=== PATIENT | male | born 1965 | race Caucasian/White ===

== ENCOUNTER 2018-06-24 20:12 | Observation (INO) | payer OTHER ==
[~2018-06-24] VITALS: Ht 175.3 cm; Wt 99.3 kg
[~2018-06-24 20:12] MED LIST: ACETAMINOPHEN-1 EAC1 PO; ASPIRIN325 PO; AUGMENTIN XR1000 MG; BACTRIM DS TAB1 EAC1 PO; BACTRIM DS TAB1 EACH PO; BENADRYL25 MG PO; CALICUM 500+D1 EACH PO; CARAFATE 1 GM TA1 GM PO; CIPRO500 MG PO; CIPROFLOXACIN500 M1 PO; COZAAR 25 MG TA25 MG PO; FIBER1 GM PO; FISH OIL 1,001000 M2 PO; FLAGYL500 MG PO; HYDROCODONE-AP1 EAC6 PO; HYDROCODONE-APA1 TA1 PO; IBUPROFEN 800800 M1 PO; IBUPROFEN 800800 MG PO; KEFLEX500 MG PO; NOHOMEMEDICATIONS; NORCO 5-325 TA1 EAC1 PO; NORCO 5-325 TA1 EACH PO; ONDANSETRON HCL4 M2 PO; PERCOCET PO; PREVACID30 MG PO; PROBIOTIC1 EAC1 PO; ULTRAM 50MG TAB50 MG PO; ZOFRAN ODT4 MG PO
[2018-06-24 20:16] VITALS: BP 107/64
[2018-06-24] MEDS ORDERED: OLMESARTAN MEDO40 MG PO (20:19)
[2018-06-24] MEDS ORDERED: LIPITOR10 MG PO (20:19)
[2018-06-24 20:49] LABS: ABSOLUTE BASOPHILS 0.1 thou/uL (0.0-0.2); ABSOLUTE EOSINOPHILS 0.1 thou/uL (0.0-0.7); ABSOLUTE LYMPHOCYTES 2.2 thou/uL (0.8-5.3); ABSOLUTE MONOCYTES 0.4 thou/uL (0.0-1.2); ABSOLUTE NEUTROPHILS 2.7 thou/uL (1.6-8.1); EOSINOPHILS 2.4 %; HEMATOCRIT 40.5 % (42.0-52.0); HEMOGLOBIN 13.9 gm/dL (14.0-18.0); LYMPHOCYTES 39.6 %; MCH 32.6 pg (26.0-34.0); MCHC 34.2 g/dL (28.0-37.0); MCV 95.2 fL (80.0-100.0); MONOCYTES 7.8 %; MPV 11.6 fl. (7.2-11.1); NUCLEATED RBCS 0 /100WBC; PLATELET COUNT* 80 thou/uL (150-400); POLYS 49.2 %; RBC 4.25 mil/uL (4.50-6.00); RDW-CV 13.3 % (10.5-14.5); WBC 5.5 thou/uL (4.0-11.0)
[2018-06-24 20:53] LABS: ANION GAP 8 mmol/L (7-16); BUN 38 mg/dL (7-18); CALCIUM 9.3 mg/dL (8.5-10.1); CHLORIDE 104 mmol/L (98-107); CO2 27 mmol/L (21-32); CREATININE 1.7 mg/dL (0.6-1.3); GLUCOSE 110 mg/dL (70-99); INR 1.1; POTASSIUM 3.8 mmol/L (3.5-5.1); PROTIME 10.9 Seconds (9.20-11.50); SODIUM 139 mmol/L (136-145)
[2018-06-24 21:03] LABS: ALBUMIN 3.8 g/dL (3.4-5.0); ALKALINE PHOSPHATASE 71 U/L (46-116); LIPASE 174 U/L (73-393); NT-PRO BRAIN NAT PEPTIDE 78 pg/mL (<300); SGOT 21 U/L (15-37); SGPT 41 U/L (30-65); TOTAL BILIRUBIN 0.4 mg/dL (<0.1-1.0); TOTAL PROTEIN 7.9 g/dL (6.4-8.2); TROPONIN-I LEVEL <0.06 ng/mL (<0.06)
[2018-06-24 22:49] VITALS: BP 132/72
[2018-06-24] MEDS ORDERED: MILK OF MA2400 MG/10 PO (23:03)
[2018-06-24] MEDS ORDERED: ZINC30 M1 PO (23:03)
[2018-06-24 23:30] VITALS: BP 111/77
[2018-06-25 04:00] VITALS: BP 108/62
--- NOTE | 2018-06-25 05:16 | NUR ---
PT ADMITTED TO ROOM 203 FROM ER. PT MOVED SELF TO BED WITH NO DIFFICULTY. TLEMETRY PACK APPLIED WITH ALARMS SET. HR 43. PT ORIENTED TO ROOM, TV CONTORLS NURSE CALL AND VERBALIZED GOOD UNDERSTANDING. VSS AND NO ACUTE DISTRESS NOTED. NO ACUTE CHANGES DURING SHIFT. WILL CONTINUE TO MONITOR.
[2018-06-25 09:00] VITALS: BP 95/59
--- NOTE | 2018-06-25 09:21 | NUR ---
ASSUMED PT. CARE AND RECEIVED REPORT AT 0730. PT A/OX4, BP SOFT AT 95/59, HEART RATE 48. PT. DENIES CURRENT PAIN/DIZZINESS/SOB. FULL ASSESSMENT COMPLETED, REFER TO CHARTING. RECEIVED CALL FROM STRESS TEST RN, ROSA ISELA FOR LIGHT BREAKFAST. PT. AWARE OF PLAN OF CARE. INSTRUCTED TO CALL FOR ASSISTANCE WITH AMBULATION, STATED UNDERSTANDING. WILL CONTINUE WITH PLAN OF CARE.
--- NOTE | 2018-06-25 11:23 | NUR ---
Pt is A&O. Resides at home. Independent with ADLs, works outside of the home. No DME. No hx of HH or SNF. Supportive family. Goal is home at nc. Cardiology following.
--- NOTE | 2018-06-25 11:32 | 2DMMODE ---
[place] [address] 2 D/M-MODE ECHOCARDIOGRAM Name: ADIN SUNG Room: [address] IN [facility]#: [id number] Admission: 06/24/18 Attend Phys: Yovanny Pino, Discharge: Date of : 63 Date of Service: 06/25/18 1132 Report #: [id number] THIS REPORT FOR: //name// APPROVED REPORT Study performed: 06/25/2018 09:46:33 EXAM: Comprehensive 2D, Doppler, and color-flow Echocardiogram Patient Location: In-Patient Room #: [facility] Status: routine BSA: 2.15 HR: 49 bpm BP: 108/62 mmHg Rhythm: NSR Other Information Study Quality: Good Indications Chest Pain Dizzy, weak 2D Dimensions LVEF(%): 78.53 (>50%) IVSd: 9.43 (7-11mm) LVOT Diam: 21.88 (18-24mm) LVDd: 50.81 mm PWd: 7.53 (7-11mm) Ascending Ao: 36.67 (22-36mm) LVDs: 26.73 (25-40mm) Aortic Root: 29.87 mm Schultz's LVEF: 78.53 % Volumes Left Atrial Volume (Systole) LA ESV Index: 26.90 mL/m2 Aortic Valve AoV Peak Holden.: 2.17 m/s AO Peak Gr.: 18.79 mmHg LVOT Max P.46 mmHg AO Mean Gr.: 10.87 mmHg LVOT Mean P.83 mmHg LVOT Max V: 1.27 m/s AO V2 VTI: 50.71 cm LVOT Mean V: 0.75 m/s SURAJ (VTI): 2.46 cm2 LVOT V1 VTI: 33.19 cm AI Major: 1.39 m/s2 AI PHT: 708.48 [place] [address] 2 D/M-MODE ECHOCARDIOGRAM Name: ADIN SUNG Room: [address] [place] .R.#: [id number] Admission: 06/24/18 Attend Phys: Yovanny Pino, Discharge: Date of : 63 Date of Service: 06/25/18 1132 Report #: [id number] Mitral Valve E/A Ratio: 1.89 MV Decel. Time: 271.42 ms MV E Max Holden.: 0.89 m/s MV PHT: 78.71 ms MVA (PHT): 2.79 cm2 TDI E/Lateral E': 6.36 E/Medial E': 8.09 Medial E' Holden.: 0.11 m/s Lateral E' Holden.: 0.14 m/s Pulmonary Valve PV Peak Holden.: 0.97 m/s PV Peak Gr.: 3.80 mmHg Tricuspid Valve RAP Estimate: 5.00 mmHg TR Peak Gr.: 17.07 mmHg RVSP: 22.07 mmHg PA Pressure: 22.07 mmHg Left Ventricle The left ventricle is normal size. There is normal LV segmental wall motion. There is normal left ventricular wall thickness. Left ventricular systolic function is normal. LVEF is 65-70%. The left ventricular diastolic function is normal. Right Ventricle The right ventricle is normal size. The right ventricular systolic function is normal. Atria The left atrium size is normal. The right atrium size is normal. Aortic Valve The aortic valve is normal in structure. Mild aortic regurgitation. There is no aortic valvular stenosis. Mitral Valve The mitral valve is normal in structure. There is no mitral valve regurgitation noted. No evidence of mitral valve stenosis. Tricuspid Valve The tricuspid valve is normal in structure. Trace tricuspid regurgitation. [place] [address] 2 D/M-MODE ECHOCARDIOGRAM Name: ADIN SUNG Room: [address] [place] .R.#: [id number] Admission: 06/24/18 Attend Phys: Yovanny Pino, Discharge: Date of : 63 Date of Service: 06/25/18 1132 Report #: [id number] Pulmonic Valve The pulmonary valve is normal in structure. There is no pulmonic valvular regurgitation. Great Vessels The aortic root is normal in size. IVC is normal in size and collapses with >50% inspiration Pericardium There is no pericardial effusion. <Conclusion> The left ventricle is normal size. There is normal left ventricular wall thickness. Left ventricular systolic function is normal. LVEF is 65-70%. The left ventricular diastolic function is normal. Mild aortic regurgitation. Trace tricuspid regurgitation. No pulmonary hypertension. IVC is normal in size and collapses with >50% inspiration <ELECTRONICALLY SIGNED> By: Phong Hanson MD, FACC 06/25/18 113 31 113 Phong Hanson MD, FACC /INF
--- NOTE | 2018-06-25 11:42 | EKG ---
[place] [address] ELECTROCARDIOGRAM REPORT Name: ADIN SUNG Room: [address] ADM IN M.R.#: [id number] Admission: 06/24/18 Attend Phys: Yovanny Pino MD Discharge: Date of : 63 Report #: [id number] THIS REPORT FOR: //name// [facility] ED Test Date: 2018-06-24 Test Time: 20:16:31 Pat Name: ADIN SUNG Department: Room: [facility] Gender: M Care Partner: : 1965 Requested By: Olivier Tinoco Order Number: [id number] MD: Phong Hanson Measurements Intervals [place] Rate: 52 P: 30 AL: 178 QRS: -9 QRSD: 90 T: 26 QT: 418 QTc: 389 Interpretive Statements Sinus rhythm Abnormal R-wave progression, late transition Inferior infarct, old Compared to ECG 09/07/2017 09:54:37 Myocardial infarct finding now present Electronically Signed On 06-25-2018 11:41:55 CDT by Phong Hanson [email or web address] <ELECTRONICALLY SIGNED> By: Phong Hanson MD, [facility] 06/25/18 1141 15 15 Phong Hanson MD, [facility] /EPI
[2018-06-25 12:04] VITALS: BP 94/58
--- NOTE | 2018-06-25 12:05 | NUR ---
pt spo2 on room air was 98%. Heart rate was 52.
--- NOTE | 2018-06-25 15:43 | CARDNUC ---
[place] [address] CARDIAC NUCLEAR IMAGING REPORT Name: ADIN SUNG Room: [address] IN [facility]#: [id number] Admission: 06/24/18 Attend Phys: Yovanny Pino, Discharge: Date of : 63 Date of Service: 06/25/18 1543 Report #: [id number] THIS REPORT FOR: //name// APPROVED REPORT Imaging Protocol: Rest Tc-99m/Stress Tc-99m 1 day Study performed: 06/25/2018 08:23:00 Indication: Chest pain Patient Location: In-Patient Room #: 203 Stress Tech: Selene Cuba Stress Nurse: Joellen Guerrier RN NM Tech:JOEL Jaffe Ht: 5 ft 9 in Wt: 219 lbs BSA: 2.15 m2 BMI: 32.33 Medical History Medical History: hep c, past hx drug abuse andetho abuse, hyperlipidemia, hypertension Medications: atorvastatin, olmesartan Allergies: darvocet, zithromax Cardiac Risk Factors: age, hyperlipidemia, hyptension Previous Cardiac Procedures: none Exercise History: Indeterminate Resting Data Rest SPECT myocardial perfusion imaging was performed in supine position 30 minutes following the intravenous injection of 10.3 mCi of Tc-99m Sestamibi. Time of rest injection: 1150 Date: 06/25/2018 Time of rest imagin The images were gated to evaluate regional wall motion and calculate left ventricular ejection fraction. Administration Route: IV Administration Site: Right AC Pharmacologic Stress Pharmacologic stress test was performed by injecting Regadenoson 0.4 mg IV push over 10-15 seconds immediately followed by the intravenous injection of 34.2 mCi of Tc-99m Sestamibi. Time of stress injection: 1320 Time of stress imagin Administration Route: [place] [address] CARDIAC NUCLEAR IMAGING REPORT Name: ADIN SUNG Room: [address] IN [facility]#: [id number] Admission: 06/24/18 Attend Phys: Yovanny Pino, Discharge: Date of : 63 Date of Service: 06/25/18 1543 Report #: [id number] Administration Site: Right AC Gated Stress SPECT was performed 40 minutes after stress injection. The images were gated to evaluate regional wall motion and calculate left ventricular ejection fraction. Prone imaging was performed. Stress Test Details Stress Test: Pharmacologic stress testing performed using 0.4 mg of regadenoson per 5 mL given IV over 10 seconds. Reason for pharmacologic stress test: physical limitation. HR Max Heart Rate (APMHR): 167 bpm Resting HR: 50 bpm Target HR (85% APMHR): 141 bpm Max HR Achieved: 98 bpm % of APMHR: 58 Recovery HR: 89 bpm BP Resting BP: 111/91 mmHg Recovery BP: 129/98 mmHg ECG Resting ECG: Sinus Rhythm, normal EKG Stress ECG: Sinus Rhythm, normal EKG ST Change: None Arrhythmia: None Recovery ECG: Sinus Rhythm, normal EKG Recovery ST Change: None Recovery Arrhythmia: None Clinical Reason for Termination: Completed protocol Exercise duration: 0 min sec Exercise capacity: 1 METs The patient tolerated Lexiscan infusion without significant symptoms. Stress ECG Conclusion The baseline EKG show sinus rhythm without significant ST or T wave abnormality. His obtained during and post Lexiscan infusion show sinus rhythm with no significant ST or T wave changes when compared to baseline. There were no stress-induced arrhythmias. Study Quality Study: [place] [address] CARDIAC NUCLEAR IMAGING REPORT Name: ADIN SUNG Room: [address]#: [id number] Admission: 06/24/18 Attend Phys: Yovanny Pino, Discharge: Date of : 63 Date of Service: 06/25/18 1543 Report #: [id number] Artifact: No artifact Study Data At rest, the left ventricular ejection fraction was 71%.. Post stress, the left ventricular ejection was 70%.. TID = 1.11. Perfusion Normal left ventricular perfusion. Wall Motion Normal left ventricular wall motion. Nuclear Conclusion ECG Findings: negative for ischemia Clinical Findings: negative for ischemia Nuclear Findings: negative for ischemia Exercise Capacity: not assessed Left Ventricular Function: normal Risk Study: low Myocardial perfusion images show no defect to suggest infarct or ischemia. Left ventricular systolic function appears normal on gated studies. This is a low risk study. <Conclusion> The baseline EKG show sinus rhythm without significant ST or T wave abnormality. His obtained during and post Lexiscan infusion show sinus rhythm with no significant ST or T wave changes when compared to baseline. There were no stress-induced arrhythmias. <ELECTRONICALLY SIGNED> By: Phong Hanson MD, FACC 06/25/18 1543 1543 1543 Phong Hanson MD, FACC /INF
[2018-06-25 15:55] VITALS: BP 104/65; BP 94/58
[2018-06-25 16:04] VITALS: BP 104/65
--- NOTE | 2018-06-25 16:30 | NUR ---
RECEIVED CALL FROM TG LIANG THAT STRESS AND ECHO WNL AND OKAY TO DC FROM CV STANDPOINT. DC ORDERS ALREADY RECEIVED FROM DR. DODSON. PT. MADE AWARE OF PLAN TO DC. IV AND MONITOR REMOVED. PT. GIVEN DC INSTRUCTIONS, VERBALIZED UNDERSTANDING. PT. LEFT TO RETURN HOME IN PERSONAL VEHICLE, ALL BELONGINGS ACCOUNTED FOR.
== END 2018-06-25 16:30 | disposition home or self-care (01) ==
LOC: M.ERS 20:12 → M.2W 21:22 → M.TBA-ER 21:22 → M.2W 23:00
PROVIDERS: Emergency Medicine; ADMIT Internal Medicine
DX: R42 Dizziness and giddiness (principal); E86.0 Dehydration; R00.1 Bradycardia, unspecified; D69.6 Thrombocytopenia, unspecified; N17.9 Acute kidney failure, unspecified; R07.89 Other chest pain; I10 Essential (primary) hypertension; E78.5 Hyperlipidemia, unspecified; F17.210 Nicotine dependence, cigarettes, uncomplicated; F15.11 Other stimulant abuse, in remission

== ENCOUNTER 2018-10-25 19:25 | Emergency (ER) | payer OTHER ==
[~2018-10-25 19:25] MED LIST changes: +LIPITOR10 MG PO; +MILK OF MA2400 MG/10 PO; +OLMESARTAN MEDO40 MG PO; +ZINC30 M1 PO
== END 2018-10-25 20:06 ==
LOC: M.ERS 19:25
DX: Z02.89 Encounter for other administrative examinations (principal)

== ENCOUNTER 2020-05-23 10:29 | Emergency (ER) | payer OTHER ==
[~2020-05-23] VITALS: Ht 175.3 cm; Wt 117.9 kg
[2020-05-23] MEDS ORDERED: VIMPAT200 MG PO (10:41)
[2020-05-23] MEDS ORDERED: CARVEDILOL25 MG PO (10:41)
[2020-05-23] MEDS ORDERED: MAGNESIUM250 M1 PO (10:41)
[2020-05-23 11:25] LABS: CALCIUM 8.5 mg/dL (8.5-10.1); CREATININE 1.1 mg/dL (0.6-1.3); POTASSIUM 4.2 mmol/L (3.5-5.1)
[2020-05-23 11:36] LABS: ALBUMIN 3.9 g/dL (3.4-5.0); TOTAL BILIRUBIN 0.7 mg/dL (<0.1-1.0)
[2020-05-23 11:39] LABS: ABSOLUTE BASOPHILS 0.1 thou/uL (0.0-0.2); ABSOLUTE EOSINOPHILS 0.2 thou/uL (0.0-0.7); ABSOLUTE LYMPHOCYTES 1.7 thou/uL (0.8-5.3); ABSOLUTE MONOCYTES 0.4 thou/uL (0.0-1.2); ABSOLUTE NEUTROPHILS 3.4 thou/uL (1.6-8.1); BASOPHILS 0.9 %; EOSINOPHILS 2.6 %; HEMATOCRIT 46.9 % (42.0-52.0); HEMOGLOBIN 16.5 gm/dL (14.0-18.0); MCH 31.9 pg (26.0-34.0); MCHC 35.2 g/dL (28.0-37.0); MCV 90.8 fL (80.0-100.0); MONOCYTES 7.4 %; MPV 10.2 fl. (7.2-11.1); NUCLEATED RBCS 0 /100WBC; PLATELET COUNT* 67 thou/uL (150-400); POLYS 59.1 %; RBC 5.16 mil/uL (4.50-6.00); RDW-CV 13.6 % (10.5-14.5); WBC 5.8 thou/uL (4.0-11.0)
[2020-05-23 12:17] VITALS: BP 148/92
--- NOTE | 2020-05-24 11:34 | EKG ---
[place] [address] ELECTROCARDIOGRAM REPORT Name: ADIN SUNG Room: [facility]#: [id number] Admission: 05/23/20 Attend Phys: Discharge: 05/23/20 Date of : 63 Date of Service: 05/23/20 1048 Report #: [id number] THIS REPORT FOR: //name// [facility] ED Test Date: 2020-05-23 Test Time: 10:48:49 Pat Name: ADIN SUNG Department: Room: Gender: Olive Pitter: [facility] : 1965 Requested By: Addy Alonzo Order Number: [id number] MD: Ezequiel Lee Measurements Intervals [place] Rate: 62 P: 24 AR: 196 QRS: -16 QRSD: 94 T: 23 QT: 401 QTc: 408 Interpretive Statements Sinus rhythm Borderline left axis deviation Abnormal R-wave progression, late transition Compared to ECG 06/24/2018 20:16:31 rate has increased Electronically Signed On 05-24-2020 11:33:29 CDT by Ezequiel Lee [email or web address] <ELECTRONICALLY SIGNED> By: Ezequiel Lee MD, [facility] 05/24/20 1133 1048 1048 Ezequiel Lee MD, [facility] /EPI
== END 2020-05-23 12:19 | disposition home or self-care (01) ==
LOC: M.ERS 10:29
PROVIDERS: Emergency Medicine Emergency Medical Services
DX: R56.9 Unspecified convulsions (principal); R42 Dizziness and giddiness; F17.210 Nicotine dependence, cigarettes, uncomplicated; I10 Essential (primary) hypertension; Z88.1 Allergy status to other antibiotic agents; Z88.8 Allergy status to other drugs, medicaments and biological substances; Z86.14 Personal history of Methicillin resistant Staphylococcus aureus infection; Z79.899 Other long term (current) drug therapy

== ENCOUNTER 2020-06-25 18:59 | Emergency (ER) | payer OTHER ==
[~2020-06-25] VITALS: Ht 175.3 cm; Wt 102.1 kg
[~2020-06-25 18:59] MED LIST changes: +CARVEDILOL25 MG PO; +MAGNESIUM250 M1 PO; +VIMPAT200 MG PO
[2020-06-25 19:26] LABS: ABSOLUTE BASOPHILS 0.1 thou/uL (0.0-0.2); ABSOLUTE EOSINOPHILS 0.2 thou/uL (0.0-0.7); ABSOLUTE LYMPHOCYTES 1.9 thou/uL (0.8-5.3); ABSOLUTE MONOCYTES 0.6 thou/uL (0.0-1.2); ABSOLUTE NEUTROPHILS 4.3 thou/uL (1.6-8.1); BASOPHILS 0.9 %; EOSINOPHILS 2.4 %; HEMATOCRIT 45.8 % (42.0-52.0); HEMOGLOBIN 16.2 gm/dL (14.0-18.0); LYMPHOCYTES 27.6 %; MCH 32.8 pg (26.0-34.0); MCHC 35.5 g/dL (28.0-37.0); MCV 92.7 fL (80.0-100.0); MONOCYTES 8.8 %; MPV 11.5 fl. (7.2-11.1); NUCLEATED RBCS 0 /100WBC; PLATELET COUNT* 67 thou/uL (150-400); POLYS 60.3 %; RBC 4.94 mil/uL (4.50-6.00); RDW-CV 13.4 % (10.5-14.5)
[2020-06-25 19:42] LABS: CALCIUM 8.5 mg/dL (8.5-10.1); CREATININE 1.4 mg/dL (0.6-1.3); POTASSIUM 4.2 mmol/L (3.5-5.1)
[2020-06-25 19:46] LABS: ALBUMIN 3.9 g/dL (3.4-5.0); MAGNESIUM 2.1 mg/dL (1.8-2.4); TOTAL BILIRUBIN 0.6 mg/dL (<0.1-1.0); TOTAL PROTEIN 7.9 g/dL (6.4-8.2)
[2020-06-25 20:16] LABS: SGOT 25.2 U/L (15-37)
[2020-06-25] MEDS ORDERED: CIPRO500 M1 PO ×2 (22:44→23:02)
[2020-06-25] MEDS ORDERED: ZOFRAN ODT4 MG PO (22:44)
[2020-06-25] MEDS ORDERED: HYDROCODON-ACE1 EAC8 PO (22:44)
[2020-06-25] MEDS ORDERED: FLAGYL500 M1 PO (22:44)
[2020-06-25 23:08] VITALS: BP 132/68
== END 2020-06-25 23:08 | disposition home or self-care (01) ==
LOC: M.ERS 18:59
PROVIDERS: Emergency Medicine
DX: K57.32 Diverticulitis of large intestine without perforation or abscess without bleeding (principal); I10 Essential (primary) hypertension; F17.210 Nicotine dependence, cigarettes, uncomplicated; Z88.1 Allergy status to other antibiotic agents; Z88.8 Allergy status to other drugs, medicaments and biological substances; Z86.14 Personal history of Methicillin resistant Staphylococcus aureus infection; Z86.19 Personal history of other infectious and parasitic diseases

== ENCOUNTER 2020-10-02 17:45 | Emergency (ER) | payer OTHER ==
[~2020-10-02] VITALS: Ht 175.3 cm; Wt 104.3 kg
[~2020-10-02 17:45] MED LIST changes: +CIPRO500 M1 PO; +FLAGYL500 M1 PO; +HYDROCODON-ACE1 EAC8 PO
[2020-10-02] MEDS ORDERED: NORVASC 2.5 MG2.5 M1 PO (19:06)
[2020-10-02] MEDS ORDERED: PREDNISONE 20 M20 MG PO (20:26)
[2020-10-02] MEDS ORDERED: ONDANSETRON HCL4 M2 PO (20:26)
[2020-10-02 20:39] VITALS: BP 105/74
== END 2020-10-02 20:40 | disposition home or self-care (01) ==
LOC: M.ERS 17:45
DX: U07.1 COVID-19 (principal); I10 Essential (primary) hypertension; F17.210 Nicotine dependence, cigarettes, uncomplicated; Z86.14 Personal history of Methicillin resistant Staphylococcus aureus infection; Z79.899 Other long term (current) drug therapy; Z88.1 Allergy status to other antibiotic agents; Z88.8 Allergy status to other drugs, medicaments and biological substances